=== PATIENT | female | born 1935 | race Asian ===

== ENCOUNTER 2017-07-25 12:47 | Emergency (ER) | payer MEDICARE, OTHER ==
[~2017-07-25] VITALS: Ht 157.5 cm; Wt 55.0 kg
[2017-07-25] MEDS ORDERED: ASPIRIN 81 MG CHEWABLE TABLET PO ONE (13:30)
[2017-07-25 13:43] LABS: BASOPHILS % (AUTO) 0.5 % (0.0-2.0); EOSINOPHILS % (AUTO) 0.5 % (1.0-6.0); HEMOGLOBIN 10.5 g/dL (12.0-16.0); LYMPHOCYTES # (AUTO) 0.7 K/uL (1.0-4.8); LYMPHOCYTES % (AUTO) 8.1 % (22.0-44.0); MEAN CORPUSCULAR HEMOGLOBIN 26.7 pg (26.0-34.0); MEAN CORPUSCULAR HGB CONC 32.9 G/dL (31.0-37.0); MEAN CORPUSCULAR VOLUME 81 fL (80-100); MONOCYTES # (AUTO) 0.3 K/uL (0.1-1.0); MONOCYTES % (AUTO) 3.4 % (2.0-9.0); NEUTROPHILS # (AUTO) 7.7 K/uL (1.8-7.7); PLATELET COUNT (AUTO) 115 K/uL (150-450); RED BLOOD CELL COUNT(AUTO) 3.95 MIL/uL (4.00-5.20); RED CELL DISTRIBUTION WIDTH 13.8 % (11.5-14.5)
[2017-07-25 13:45] LABS: NEUTROPHILS % (AUTO) 87.5 % (40.0-70.0)
[2017-07-25 13:54] LABS: ANION GAP 11 mmol/L (8-16); CALCIUM, TOTAL 8.8 mg/dL (8.8-10.5); CARBON DIOXIDE 21 mmol/L (22-29); CHLORIDE 108 mmol/L (98-107); CREATININE 1.44 mg/dL (0.60-1.30); GLOMERULAR FILTR. RATE CALC 35 mL/min (>60); GLUCOSE,RANDOM 119 mg/dL (70-110); POTASSIUM 4.4 mmol/L (3.5-5.1); SODIUM SERUM 140 mmol/L (136-145); UREA NITROGEN, BLOOD 26 mg/dL (7-18)
[2017-07-25 14:07] LABS: B-TYPE NATRIURETIC PEPTIDE 284 pg/mL (0-100)
[2017-07-25 14:19] LABS: ALANINE AMINOTRANSFERASE 26 U/L (12-78); ALBUMIN 3.1 g/dL (3.4-5.0); ALKALINE PHOSPHATASE 204 U/L (46-116); ASPARTATE AMINOTRANSFERASE 32 U/L (15-37); CREATINE KINASE MB 2.6 ng/mL (0-5); CREATINE KINASE, TOTAL 81 U/L (26-192); TOTAL PROTEIN, SERUM 6.7 g/dL (6.4-8.2)
[2017-07-25] MEDS ORDERED: IOVERSOL 350 MG/ML 100 ML VIAL ONE ×2 (14:52→15:11)
[2017-07-25 15:19] LABS: APPEARANCE,URINE CLEAR (CLEAR); BILIRUBIN,URINE NEGATIVE (NEGATIVE); GLUCOSE, URINE (UA) NEGATIVE (NEGATIVE); KETONES,URINE NEGATIVE (NEGATIVE); LEUKOCYTE ESTERASE ,URINE NEGATIVE (NEGATIVE); NITRATE,URINE NEGATIVE (NEGATIVE); OCCULT BLOOD,URINE SMALL (NEGATIVE); PH,URINE 5.5 (5.0-8.0); PROTEIN,URINE SEE CONFIRM (NEGATIVE); UROBILINOGEN,URINE 0.2 mg/dL (<=1.0)
[2017-07-25 15:45] LABS: SULFOSALICYLIC ACID,URINE 2+ (Negative)
[2017-07-25 15:46] LABS: SQUAMOUS EPITHELIAL CELL,UR Few /LPF (None Seen)
[2017-07-25 15:47] LABS: BACTERIA,URINE Few /HPF (None Seen)
[2017-07-25 15:49] LABS: RBC,URINE 0-2 /HPF (0-2)
[2017-07-25 19:30] VITALS: BP 116/61
== END 2017-07-25 19:49 | disposition home or self-care (01) ==
LOC: EMS 12:48
DX: F41.9 Anxiety disorder, unspecified (principal); R42 Dizziness and giddiness; R00.0 Tachycardia, unspecified
CPT/HCPCS: 36415; 71010; 71260; 80053; 81001; 82550; 82553; 83605; 83880; 84484; 85025; 85379; 87040; 93005; 99285; Q9967

== ENCOUNTER → 2018-10-14 | Outpatient (CLI) | payer MEDICARE, OTHER | END | disposition home or self-care (01) | LOC: RADPV 12:49 | PROVIDERS: ATTEND Family Medicine | DX: M41.85 Other forms of scoliosis, thoracolumbar region (principal); I70.0 Atherosclerosis of aorta ==